=== PATIENT | female | born 1980 | race Caucasian/White ===

== ENCOUNTER 2017-08-05 08:25 | Inpatient (IN) | payer OTHER ==
[~2017-08-05] VITALS: Ht 162.6 cm; Wt 78.0 kg
[~2017-08-05 08:25] MED LIST: CALC1TAB15 PO; FERR1TAB24 PO; FOLI1TAB15 PO; PREN1TAB52 PO
[2017-08-05] MEDS ORDERED: RINGERS SOLUTION,LACTATED 1,000 ML IV SCH (23:41)
[2017-08-05] MEDS ORDERED: CITRIC ACID/SODIUM CITRATE 30 ML SOLUTION UDCUP PO ONE (23:45)
[2017-08-05] MEDS ORDERED: METOCLOPRAMIDE HCL 5 MG/ML 2 ML VIAL IVP ONE (23:45)
[2017-08-06 00:27] VITALS: BP 126/76
[2017-08-06 00:39] LABS: BASOPHILS # (AUTO) 0.02 K/uL (0.00-0.20); BASOPHILS % (AUTO) 0.3 % (0.0-2.0); EOSINOPHILS # (AUTO) 0.05 K/uL (0.00-0.70); EOSINOPHILS % (AUTO) 0.72 % (1.0-6.0); HEMATOCRIT 32.4 % (36-46); HEMOGLOBIN 10.5 g/dL (12.0-16.0); LYMPHOCYTES # (AUTO) 1.4 K/uL (1.0-4.8); LYMPHOCYTES % (AUTO) 19.2 % (22.0-44.0); MEAN CORPUSCULAR HEMOGLOBIN 26.7 pg (26.0-34.0); MEAN CORPUSCULAR HGB CONC 32.3 G/dL (31.0-37.0); MEAN CORPUSCULAR VOLUME 83 fL (80-100); MONOCYTES # (AUTO) 0.7 K/uL (0.1-1.0); MONOCYTES % (AUTO) 9.1 % (2.0-9.0); NEUTROPHILS % (AUTO) 70.7 % (40.0-70.0); RED BLOOD CELL COUNT(AUTO) 3.92 MIL/uL (4.00-5.20); RED CELL DISTRIBUTION WIDTH 14.7 % (11.5-14.5); WHITE BLOOD COUNT (AUTO) 7.1 K/uL (4.5-11.0)
[2017-08-06] MEDS ORDERED: CeFAZolin 2 GM/DEXTROSE 0 ML IV ONE (06:53)
[2017-08-06] MEDS ORDERED: MORPHINE SULFATE/PF 0.5 MG/ML 10 ML AMP ONE (06:53)
[2017-08-06] MEDS ORDERED: FentaNYL CITRATE-PF 100 MCG/2 ML VIAL ONE (06:53)
[2017-08-06] MEDS ORDERED: RINGERS SOLUTION,LACTATED 1,000 ML IV ONE ×3 (06:55→09:27)
[2017-08-06] MEDS ORDERED: PROMETHAZINE HCL 12.5 MG in SODIUM CHLORIDE 0.9% 50 ML IV PRN (08:45)
[2017-08-06] MEDS ORDERED: ONDANSETRON HCL 4 MG/2 ML VIAL IVP PRN ×2 (08:45)
[2017-08-06] MEDS ORDERED: MORPHINE SULFATE 10 MG/ML SYRINGE IVP PRN (08:45)
[2017-08-06] MEDS ORDERED: FentaNYL CITRATE-PF 100 MCG/2 ML VIAL IVP PRN ×3 (08:45)
[2017-08-06] MEDS ORDERED: DiphenhydrAMINE HCL 50 MG/ML VIAL IVP PRN ×2 (08:45)
[2017-08-06] MEDS ORDERED: NALBUPHINE HCL 10 MG/ML VIAL IVP PRN ×2 (08:45)
[2017-08-06] MEDS ORDERED: NALOXONE HCL 0.4 MG/ML VIAL IVP PRN (08:45)
[2017-08-06] MEDS ORDERED: ACETAMINOPHEN 1000 MG/ISO-OSM 100 ML IV ONE ×2 (08:45→10:24)
[2017-08-06] MEDS ORDERED: METHYLERGONOVINE MALEATE 0.2 MG/ML VIAL ONE (08:58)
[2017-08-06] MEDS ORDERED: ACETAMINOPHEN/CODEINE 300-30 MG TABLET PO PRN ×2 (09:15)
[2017-08-06] MEDS ORDERED: LANOLIN 7 GM OINTMENT TP PRN (09:15)
[2017-08-06] MEDS: DEXTROSE 5%-0.45% SODIUM CHL 1,000 ML IV SCH ×2 (15:25→19:36)
[2017-08-06] MEDS: ACETAMINOPHEN 1000 MG/ISO-OSM 100 ML IV PRN (18:20)
[2017-08-06] MEDS ORDERED: OXYGEN THERAPY IH SCH ×4 (20:00)
[2017-08-07] MEDS: DEXTROSE 5%-0.45% SODIUM CHL 1,000 ML IV SCH ×2 (00:29→04:24)
[2017-08-07] MEDS: ACETAMINOPHEN 1000 MG/ISO-OSM 100 ML IV PRN (02:00)
[2017-08-07] MEDS ORDERED: ONDANSETRON HCL 4 MG/2 ML VIAL IVP ONE (05:12)
[2017-08-07] MEDS ORDERED: PHENYLEPHRINE HCL 10 MG/ML VIAL IVP ONE (05:12)
[2017-08-07] MEDS ORDERED: 0.9% SODIUM CHLORIDE 10 ML VIAL IVP ONE (05:12)
[2017-08-07] MEDS ORDERED: OXYTOCIN 10 UNITS/ML VIAL IM ONE (05:12)
[2017-08-07] MEDS ORDERED: DEXAMETHASONE SOD PHOS 4 MG/ML VIAL IVP ONE (05:12)
[2017-08-07] MEDS ORDERED: EPHEDrine SULFATE 50 MG/ML VIAL IM ONE (05:12)
[2017-08-07] MEDS: IBUPROFEN 800 MG TABLET PO SCH ×3 (05:43→18:56)
[2017-08-07 06:19] LABS: BASOPHILS % (AUTO) 0.2 % (0.0-2.0); EOSINOPHILS % (AUTO) 0.3 % (1.0-6.0); HEMOGLOBIN 8.9 g/dL (12.0-16.0); LYMPHOCYTES # (AUTO) 1.5 K/uL (1.0-4.8); LYMPHOCYTES % (AUTO) 13.5 % (22.0-44.0); MEAN CORPUSCULAR HEMOGLOBIN 27.3 pg (26.0-34.0); MEAN CORPUSCULAR HGB CONC 32.9 G/dL (31.0-37.0); MEAN CORPUSCULAR VOLUME 83 fL (80-100); MONOCYTES # (AUTO) 0.7 K/uL (0.1-1.0); MONOCYTES % (AUTO) 6.4 % (2.0-9.0); NEUTROPHILS % (AUTO) 79.6 % (40.0-70.0); RED BLOOD CELL COUNT(AUTO) 3.25 MIL/uL (4.00-5.20); RED CELL DISTRIBUTION WIDTH 14.7 % (11.5-14.5); WHITE BLOOD COUNT (AUTO) 11.3 K/uL (4.5-11.0)
[2017-08-07] MEDS: MAGNESIUM HYDROXIDE SUSPENSION 30 ML UDCUP PO SCH ×2 (09:00→18:06)
[2017-08-08] MEDS: IBUPROFEN 800 MG TABLET PO SCH ×2 (01:00→06:56)
[2017-08-08] MEDS: MAGNESIUM HYDROXIDE SUSPENSION 30 ML UDCUP PO SCH (08:47)
[2017-08-08] MEDS ORDERED: BISACODYL 10 MG RECTAL RECTAL SUPPOSITORY PR ONE (10:15)
[2017-08-08] MEDS ORDERED: IBUP-2071 PO (11:18)
== END 2017-08-08 12:40 | disposition home or self-care (01) | DRG 766 ==
LOC: 4S 08:25 → OBSVTOIN 08-06 04:34
PROVIDERS: ADMIT Obstetrics & Gynecology; ATTEND Obstetrics & Gynecology
PROC: 10D00Z1 Extraction of Products of Conception, Low, Open Approach (ICD-10-PCS; principal; 2017-08-06)
PROC: 0UB70ZZ Excision of Bilateral Fallopian Tubes, Open Approach (ICD-10-PCS; 2017-08-06)
DX: O34.211 Maternal care for low transverse scar from previous cesarean delivery (principal); O09.523 Supervision of elderly multigravida, third trimester; Z37.0 Single live birth; Z3A.38 38 weeks gestation of pregnancy; Z88.0 Allergy status to penicillin
CPT/HCPCS: 86850; 86900; 86901; 87081; 88302; J0131; J0690; J1100; J2210; J2274; J2370; J2405; J2590; J2765; J3010; J3490; J7120